=== PATIENT | female | born 1965 | race Two or more races ===

== ENCOUNTER 2021-10-31 08:45 | Outpatient (CLI) | payer OTHER | END 2021-10-31 08:58 | disposition home or self-care (01) | LOC: SONOGRAMA 08:45 | PROVIDERS: ATTEND Pathology Anatomic Pathology & Clinical Pathology | DX: E04.2 Nontoxic multinodular goiter (principal) ==

== ENCOUNTER 2022-10-30 08:33 | Outpatient (CLI) | payer OTHER | END 2022-10-30 08:38 | disposition home or self-care (01) | LOC: SONOGRAMA 08:33 | PROVIDERS: ATTEND Pathology Anatomic Pathology & Clinical Pathology | DX: D34 Benign neoplasm of thyroid gland (principal); D44.0 Neoplasm of uncertain behavior of thyroid gland; E07.9 Disorder of thyroid, unspecified; E04.9 Nontoxic goiter, unspecified ==